=== PATIENT | female | born 1960 ===

== ENCOUNTER 2022-03-11 08:25 | Day surgery (SDC) | payer OTHER ==
[~2022-03-11] VITALS: Ht 157.5 cm; Wt 70.6 kg
[2022-03-11] MEDS ORDERED: AZULFIDINE500 MG/TAB PO (08:40)
[2022-03-11] MEDS ORDERED: HYDROXYCHLOROQUINE PO (08:41)
[2022-03-11] MEDS ORDERED: CALCIUM 600MG+D1 TAB PO ×2 (08:42)
[2022-03-11] MEDS ORDERED: HCTZ12.5TAB PO (08:43)
[2022-03-11 08:58] VITALS: BP 165/79; PULSE 96; TEMP 98.1
--- NOTE | 2022-03-11 09:10 | NUR ---
[employer] contacted about high BP: first 175/75, second 165/69 during pre-op admit. No new orders recieved.
[2022-03-11 09:20] LABS: BASO % 0.4 % (0.0-2.0); EOS # 0.1 K/mm3 (0.0-0.7); EOS % 0.8 % (0.0-4.0); GRAN # 5.8 K/mm3 (1.4-6.5); GRAN % 72.3 % (42.2-75.2); HEMATOCRIT 30.2 % (37.0-47.0); LYMPH # 1.4 K/mm3 (1.2-3.4); LYMPH % 17.3 % (20.0-51.0); MEAN CELL VOLUME 93 fl (80.0-100.0); MEAN CORPUSCULAR HEMOGLOBIN 31 pg (27-31); MEAN CORPUSCULAR HGB CONC 33 g/dl (33.0-37.0); MEAN PLATELET VOLUME 9.7 fl (7.4-10.4); MONO # 0.7 K/mm3 (0.1-0.6); MONO % 8.6 % (1.7-9.3); PLATELET COUNT 406 K/mm3 (130-400); RED BLOOD COUNT 3.25 M/mm3 (4.10-5.30)
[2022-03-11 10:50] VITALS: BP 118/51; PULSE 73; TEMP 99
--- NOTE | 2022-03-11 10:50 | NUR ---
Pt arrived from procedure, awake and oriented x3. Son is still present in room. Monitors applied to pt and vitals obtained. Warm muffin and apple juice served per pt request. Call rowan is within reach on side table. Side rails x2. Will monitor per intervals. Pt denies nausea. Per report: pt has been supine about 3 mintues. RN is to check site w/ next set of vitals.
[2022-03-11 11:05] VITALS: BP 1396/69; PULSE 71
--- NOTE | 2022-03-11 11:05 | NUR ---
Vitals obtained. Pt denies nausea. NO vomiting. Expressed desire to be discharged. Call rowan remains within reach.
[2022-03-11 11:20] VITALS: BP 158/59; PULSE 72
--- NOTE | 2022-03-11 11:20 | NUR ---
Vitals obtained. Then IV discontinued. Catheter tip intact. Pressure bandage applied. NO redness or swelilng noted. DC instructions and educational material reviewed with the pt and her son. The pt verbalized understanding and signed the related paperwork. Pt then as assisted out of bed and ambulated to the bathroom without difficulty. Pt voided then back to her room. She denied needing assistance changing into personal clothes and verbalized understanding using call rowan when done changing. Procedure site is clean, dry and intact; without drainage or bleeding.
[2022-03-11 11:26] VITALS: BP 118/51; PULSE 72
--- NOTE | 2022-03-11 11:50 | NUR ---
[place] [facility] the pt entrence by Natalya SALES and her son. Pt has her personal belongings and DC packet, and was released to a private car, son is present to drive.
== END 2022-03-11 11:50 | disposition home or self-care (01) ==
LOC: SDCO 08:25
PROVIDERS: Pathology Anatomic Pathology & Clinical Pathology
DX: C90.00 Multiple myeloma not having achieved remission (principal); I10 Essential (primary) hypertension; L93.0 Discoid lupus erythematosus; Z79.899 Other long term (current) drug therapy
CPT/HCPCS: J2704; J3010; J7120